=== PATIENT | female | born 1985 | race Caucasian/White ===

== ENCOUNTER 2023-11-13 02:40 | Emergency (ER) | payer SELFPAY ==
[2023-11-13] MEDS ORDERED: NA CHLORIDE 0.9% 1,000 ML ONE (02:57)
[2023-11-13] MEDS ORDERED: LORazepam 2 MG/ML VIAL ONE (03:08)
[2023-11-13] MEDS ORDERED: DIPHENHYDRAMINE 50 MG/ML VIAL ONE (03:09)
[2023-11-13 03:17] LABS: Absolute Basophils 0.1 K/uL (0-0.5); Absolute Eosinophils 0.2 K/uL (0-0.5); Absolute Lymphocytes (CBC) 2.3 K/uL (0.7-4.9); Absolute Monocytes 0.7 K/uL (0.1-1.3); Absolute Neutrophil 13.7 K/uL (1.8-8.0); Basophils % 0.6 % (0-1.3); Hematocrit 45.1 % (36.0-45.0); Hemoglobin 14.7 g/dL (12.0-15.0); Lymphocytes % 13.7 % (15.3-44.8); MCH 29.3 pg (27.0-35.0); MCHC 32.6 g/dL (32.0-36.0); MPV 8.5 fL (7.6-11.3); Monocytes % 4.1 % (3.3-12.3); Neutrophils % 80.6 % (41.7-73.7); Platelets 369 thou/uL (152-406); RBC Red Blood Cell Count 5.02 M/uL (3.86-4.86); Red Cell Distribution Width 15.1 % (12.1-15.2)
[2023-11-13 03:34] LABS: ALT/SGPT 19 U/L (13-56); Albumin 3.5 g/dL (3.4-5.0); Alkaline Phosphatase 109 U/L (45-117); Anion Gap 6.5 mEq/L (5.0-15.0); BUN Blood Urea Nitrogen 14 mg/dL (7-18); Bicarbonate 26 mEq/L (21-32); Bilirubin Total 0.6 mg/dL (0.2-1.0); Globulin 3.6 g/dL (2.3-3.5); Glomerular Filtration Rate 84 ml/min (=/>90); Glucose Level 135 mg/dL (74-106); Lipase 30 U/L (13-75); Potassium 3.5 mEq/L (3.5-5.1); Protein, Total 7.1 g/dL (6.4-8.2); Sodium Level 137 mEq/L (136-145)
[2023-11-13 03:35] LABS: AST/SGOT < 10 U/L (15-37)
--- NOTE | 2023-11-13 04:35 | ER ---
Nurse's Notes [facility] Name: Glo Winslow Age: 38 yrs Sex: Female : 1985 Arrival Date: 11/13/2023 Time: 02:40 Bed 12 Private MD: Diagnosis: Other viral enteritis Presentation: 11/12 03:14 Chief complaint: Patient states: I am having severe abdominal pain and I am vomiting. jb4 Coronavirus screen: At this time, the client does not indicate any symptoms associated with coronavirus-19. Ebola Screen: No symptoms or risks identified at this time. Initial Sepsis Screen: Does the patient meet any 2 criteria? No. Patient's initial sepsis screen is negative. Does the patient have a suspected source of infection? No. Patient's initial sepsis screen is negative. Risk Assessment: Do you want to hurt yourself or someone else? Patient reports no desire to harm self or others. Onset of symptoms was November 13, 2023. Transition of care: patient was not received from another setting of care. 03:14 Method Of Arrival: Wheelchair jb4 03:14 Acuity: ANABEL 3 jb4 Historical: - Allergies: 03:17 No Known Allergies; jb4 - PMHx: 03:17 None; jb4 - PSHx: 03:17 ; jb4 - Immunization history:: Adult Immunizations unknown. - Infectious Disease History:: Denies. - Social history:: Smoking status: Patient reports the use of cigarette tobacco products. Screenin:18 [facility] ED Fall Risk Assessment (Adult) History of falling in the last 3 months, jb4 including since admission No falls in past 3 months (0 pts) Confusion or Disorientation No (0 pts) Intoxicated or Sedated No (0 pts) Impaired Gait No (0 pts) Mobility Assist Device Used No (0 pt) Altered Elimination No (0 pt) Score/Fall Risk Level 0 - 2 = Low Risk Oriented to surroundings, Maintained a safe environment. Abuse screen: Denies threats or abuse. Denies injuries from another. Nutritional screening: No deficits noted. Tuberculosis screening: No symptoms or risk factors identified. Assessment: 03:18 General: Appears distressed, uncomfortable, Behavior is cooperative, agitated, anxious, jb4 crying. Pain: Complains of pain in abdomen Pain does not radiate. Pain currently is 10 out of 10 on a pain scale. Neuro: Level of Consciousness is awake, alert, obeys commands, Oriented to person, place, time, situation. Cardiovascular: Patient's skin is warm and dry. Respiratory: Airway is patent Respiratory effort is even, unlabored, Respiratory pattern is regular, symmetrical. GI: No signs and/or symptoms were reported involving the gastrointestinal system. : No signs and/or symptoms were reported regarding the genitourinary system. EENT: No signs and/or symptoms were reported regarding the EENT system. Derm: Skin is healthy with good turgor, Skin is pink, warm \T\ dry. Musculoskeletal: Circulation, motion, and sensation intact. Range of motion: intact in all extremities. 04:50 Reassessment: Patient appears in no apparent distress at this time. Patient and/or jb4 family updated on plan of care and expected duration. Pain level reassessed. Patient is alert, oriented x 3, equal unlabored respirations, skin warm/dry/pink. Vital Signs: 03:14 BP 177 / 99; Pulse 63; Resp 16; Temp 97.5(A); Pulse Ox 99% ; Pain 10/10; jb4 03:14 Pain Scale: Adult jb4 ED Course: 02:52 Patient arrived in ED. sb4 02:54 Sonu Paez MD is Attending Physician. ec2 03:17 Triage completed. jb4 03:17 Arm band placed on right wrist. jb4 03:18 Patient has correct armband on for positive identification. Bed in low position. Call jb4 light in reach. Side rails up X 1. Provided Education on: plan of care. 03:18 No provider procedures requiring assistance completed. Initial lab(s) drawn, by me. jb4 Inserted saline lock: 20 gauge in right antecubital area, using aseptic technique. Blood collected. 03:52 CT Abd/Pelvis - IV Contrast Only In Process Unspecified. EDMS 04:50 IV discontinued, intact, bleeding controlled, No redness/swelling at site. Pressure jb4 dressing applied. Administered Medications: 03:07 Drug: Droperidol IVP 2.5 mg IVP once Route: IVP; Site: right antecubital; jb4 03:07 Drug: NS 0.9% IV 1000 ml IV at 1 bolus Per protocol; 1000 mL bolus Route: IV; Rate: 1 jb4 bolus; Site: right antecubital; 03:13 Drug: Ativan IVP 2 mg IVP once Route: IVP; Site: right antecubital; jb4 03:14 Not Given (Other Intervention Used): ativan1 mg IVP once jb4 03:14 Drug: diphenhydrAMINE IVP 50 mg IVP once Route: IVP; Site: right antecubital; jb4 04:37 Follow up: Response: No adverse reaction jb4 Medication: 03:18 VIS not applicable for this client. jb4 Outcome: 04:35 Discharge ordered by . ec2 04:50 Discharged to home via wheelchair, with family, jb4 04:50 Condition: stable 04:50 Discharge instructions given to patient, Instructed on discharge instructions, follow up and referral plans. medication usage, Demonstrated understanding of instructions, follow-up care, medications, Prescriptions given X 2, 04:52 Patient left the ED. jb4 Signatures: Dispatcher [employer] Zak Duran RN RN jb4 Lilly De La Paz PAFreddyC PA-C sb4 Sonu Paez MD MD ec2 Corrections: (The following items were deleted from the chart) 03:17 03:17 PSHx: None; jb4 jb4
--- NOTE | 2023-11-13 04:35 | EDPHYS ---
Physician Documentation [facility] Name: Glo Winslow Age: 38 yrs Sex: Female : 1985 Arrival Date: 11/13/2023 Time: 02:40 Bed 12 Private MD: ED Physician Sonu Paez HPI: 11/12 03:58 This 38 yrs old Female presents to ER via Wheelchair with complaints of abd ec2 pain. 03:58 Patient arrives today for evaluation of generalized abdominal pain. Patient with ec2 complaints of abdominal pain ongoing throughout the day. Patient reports some associated nausea as well as vomiting. Denies any bowel issues, denies urinary complaints. Reports previous as well as cholecystectomy. Historical: - Allergies: 03:17 No Known Allergies; jb4 - PMHx: 03:17 None; jb4 - PSHx: 03:17 ; jb4 - Immunization history:: Adult Immunizations unknown. - Infectious Disease History:: Denies. - Social history:: Smoking status: Patient reports the use of cigarette tobacco products. ROS: 03:58 Constitutional: as per hpi ec2 Exam: 03:58 Constitutional: GEN: NAD Head: atraumatic Eyes: EOMI Ears: External ears are normal. ec2 Mouth: Poor dentition CV: regular rate LUNGS: no respiratory distress ABD: non-distended, reproducible abdominal TTP, no guarding, no rigidity. SKIN: no evidence of rashes MSK: no evidence of trauma NEURO: moves all extremities equally. Psych: Restless individual. Vital Signs: 03:14 BP 177 / 99; Pulse 63; Resp 16; Temp 97.5(A); Pulse Ox 99% ; Pain 10/10; jb4 03:14 Pain Scale: Adult jb4 MDM: 02:55 Patient medically screened. ec2 03:55 ED course: EKG independently reviewed and interpreted by me, shows normal sinus rhythm, ec2 rate of 95, no acute ST segment elevations, intervals are nonconcerning.. 03:58 Data reviewed: vital signs. ED course: Patient arrives today for evaluation of ec2 abdominal pain. Examination remarkable reproduce abdominal TTP otherwise patient is generally restless with poor dentition. Will obtain lab work, urine studies, CT imaging. Differential diagnosis include appendicitis, ureteral stone, diverticulitis.. 04:24 ED course: CBC shows leukocytosis 17. Metabolic profile shows appropriate electrolytes, ec2 nonactionable, negative for , lipase within normal ranges. Pending CT imaging. . 04:31 ED course: CT abdomen pelvis shows enteritis, no evidence of obstruction, no surgical ec2 process identified. On reassessment patient is well-appearing in no acute distress. . 11/12 02:53 Order name: CBC with Diff; Complete Time: 04:24 sb4 11/12 02:53 Order name: CMP; Complete Time: 04:24 sb4 11/12 02:53 Order name: Lipase; Complete Time: 04:24 sb4 11/12 02:54 Order name: Test, Serum; Complete Time: 04:24 sb4 11/12 02:57 Order name: CT Abd/Pelvis - IV Contrast Only ec2 11/12 02:53 Order name: IV Saline Lock; Complete Time: 03:14 sb4 11/12 02:53 Order name: Labs collected and sent; Complete Time: 03:14 sb4 Administered Medications: 03:07 Drug: Droperidol IVP 2.5 mg IVP once Route: IVP; Site: right antecubital; jb4 03:07 Drug: NS 0.9% IV 1000 ml IV at 1 bolus Per protocol; 1000 mL bolus Route: IV; Rate: 1 jb4 bolus; Site: right antecubital; 03:13 Drug: Ativan IVP 2 mg IVP once Route: IVP; Site: right antecubital; jb4 03:14 Not Given (Other Intervention Used): ativan1 mg IVP once jb4 03:14 Drug: diphenhydrAMINE IVP 50 mg IVP once Route: IVP; Site: right antecubital; jb4 04:37 Follow up: Response: No adverse reaction jb4 Disposition Summary: 11/13/23 04:35 Discharge Ordered Notes: Location: Home ec2 Condition: Stable ec2 Diagnosis - Other viral enteritis ec2 Followup: ec2 - With: Private Physician - When: - Reason: Re-evaluation by your physician Discharge Instructions: - Discharge Summary Sheet ec2 - Viral Gastroenteritis, Adult, [id number] ec2 Forms: - Work release form jb4 - Medication Reconciliation Form ec2 - Antibiotic Education ec2 - Prescription Opioid Use ec2 - Patient Portal Instructions ec2 - Leadership Thank You Letter ec2 Prescriptions: - Zofran 4 mg Oral Tablet - take 1 tablet ORAL route every 12 hours As needed; 20 tablet; Refills: 0, ec2 Product Selection Permitted - dicyclomine 10 mg Oral capsule - take 1 capsule ORAL route 3 times per day; 30 capsule; Refills: 0, Product ec2 Selection Permitted Signatures: Dispatcher [employer] Zak Duran RN RN jb4 Lilly De La Paz PA-C PA-C sb4 Sonu Paez MD MD ec2 Corrections: (The following items were deleted from the chart) 02:54 02:54 CBC+H.LAB.BRZ ordered. EDMS EDMS 02:54 02:54 COMPREHENSIVE METABOLIC PANEL+C.LAB.BRZ ordered. EDMS EDMS 02:54 02:54 LIPASE+C.LAB.BRZ ordered. EDMS EDMS 02:54 02:54 Urinalysis+U.LAB.BRZ ordered. EDMS EDMS 02:54 02:54 URINE DRUG SCREEN+UC.LAB.BRZ ordered. EDMS EDMS 03:17 03:17 PSHx: None; jb4 jb4
[2023-11-13 05:15] VITALS: BP 177/99; TEMP 97.5; O2SAT 99
--- NOTE | 2023-11-13 12:13 | RAD REPORT ---
EXAM DESCRIPTION: CT - Abdomen Pelvis W Contrast - 11/13/2023 6:34 am CLINICAL HISTORY: ABD PAIN COMPARISON: None Available. TECHNIQUE: CT of the abdomen and pelvis performed following IV administration of iodinated contras t. This exam was performed according to our departmental dose-optimization program, which includes au tomated exposure control, adjustment of the mA and/or kV according to patient size and/or use of iter ative reconstruction technique. FINDINGS: Lung Bases: The visualized lung bases are clear. Bones: No acute osseous abnormality identified. Abdomen: Liver: Hepatomegaly. Gallbladder: Prior cholecystectomy. Spleen, Pancreas, and Adrenal Glands: The spleen, pancreas, and adrenal glands are unremarkable. Kidneys: No hydronephrosis or obstructing calculus. Vasculature: The aorta and IVC have normal caliber and position. The portal vein is patent. The pro ximal visceral and renal arteries are patent. Stomach: Small hiatal hernia. Other: No free intraperitoneal air. No free fluid or lymphadenopathy. Pelvis: Bladder: Urinary bladder is unremarkable. Bowel: No dilated loops of large or small bowel. Wall thickening of the proximal small bowel. Appendix: Normal appendix. Pelvis: Uterus is not enlarged. IMPRESSION: 1. Wall thickening of the proximal small bowel. These findings could be seen with nons pecific enteritis. 2. Hepatomegaly. 3. Small hiatal hernia. Electronically signed by: Jag Wagner DO 11/13/2023 04:27 AM CDT [id number] Due to temporary technical issues with the PACS/Fluency reporting system, reports are being signed by the in house radiologists without review as a courtesy to insure prompt reporting. The interpreting radiologist is fully responsible for the content of the report
== END 2023-11-13 04:52 | disposition home or self-care (01) ==
LOC: ER 02:40
DX: A08.39 Other viral enteritis (principal)
CPT/HCPCS: 36415; 74177; 80053; 83690; 84703; 85025; 96374; 96375; 99284; J1200; J7030; Q9967